=== PATIENT | male | born 1975 | race Caucasian/White ===

== ENCOUNTER 2017-06-13 23:33 | Emergency (ER) | payer OTHER | END 2017-06-14 00:05 | disposition home or self-care (01) | LOC: ER 06-14 00:05 | DX: H66.91 Otitis media, unspecified, right ear (principal); H00.025 Hordeolum internum left lower eyelid; F17.200 Nicotine dependence, unspecified, uncomplicated; Z88.5 Allergy status to narcotic agent | CPT/HCPCS: 99283 ==

== ENCOUNTER 2017-12-26 16:58 | Emergency (ER) | payer OTHER ==
[~2017-12-26] VITALS: Ht 182.9 cm; Wt 95.3 kg
[~2017-12-26 16:58] MED LIST: CEPH-264 PO; DOCU-109 PO; HYDR-971 PO; NAPR-695 PO
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
[2017-12-26] MEDS ORDERED: ONDANSETRON PF 4 MG/2 ML VIAL. IV ONE (19:00)
[2017-12-26] MEDS ORDERED: MORPHINE SULFATE 4 MG/ML VIAL. IV ONE (19:00)
[2017-12-26 19:04] LABS: BASO # 0.1 x10^3/uL (0.0-0.2); BASO % 1 % (0-3); EOS # 0.3 x10^3/uL (0.0-0.7); EOS % 3 % (0-3); HEMATOCRIT 45.1 % (39.0-53.0); HEMOGLOBIN 15.6 g/dL (13.0-17.5); LYMPH # 2.8 x10^3/uL (1.0-4.8); LYMPH % 30 % (24-48); MEAN CORPUSCULAR HEMOGLOBIN 30 pg (25-35); MEAN CORPUSCULAR HGB CONC 35 g/dL (31-37); MEAN CORPUSCULAR VOLUME 86 fL (79-100); MONO # 0.7 x10^3/uL (0.0-1.1); MONO % 8 % (0-9); NEUT # 5.5 x10^3uL (1.8-7.7); NEUT % 58 % (31-73); PLATELET COUNT 292 x10^3/uL (140-400); RED BLOOD COUNT 5.25 x10^6/uL (4.30-5.70); RED CELL DISTRIBUTION WIDTH 13.3 % (11.5-14.5); WHITE BLOOD COUNT 9.5 x10^3/uL (4.0-11.0)
[2017-12-26 19:12] LABS: BILIRUBIN,URINE NEGATIVE (NEG); CLARITY,URINE CLEAR; COLOR,URINE YELLOW; NITRITE,URINE NEGATIVE (NEG); PH,URINE 5.5; PROTEIN,URINE NEGATIVE (NEG-TRACE)
[2017-12-26 19:15] LABS: CALCIUM 9.3 mg/dL (8.5-10.1); CREATININE 0.9 mg/dL (0.7-1.3); GFR 91.7; POTASSIUM 3.7 mmol/L (3.5-5.1)
[2017-12-26 19:24] LABS: BACTERIA,URINE 0 /HPF (0-FEW); RBC,URINE 0 /HPF (0-2); SQUAMOUS EPITHELIAL CELL,UR OCC /LPF; WBC,URINE OCC /HPF (0-4)
[2017-12-26 19:28] LABS: ALBUMIN 3.7 g/dL (3.4-5.0); ALBUMIN/GLOBULIN RATIO 1.1 (1.0-1.7); TOTAL BILIRUBIN 0.2 mg/dL (0.2-1.0); TOTAL PROTEIN 7.1 g/dL (6.4-8.2)
[2017-12-26] MEDS ORDERED: IOHEXOL 300 MG/ML 100ML VIAL. IV ONE (19:30)
[2017-12-26] MEDS ORDERED: CONTRAST GIVEN. MC PRN (19:30)
[2017-12-26 20:01] VITALS: BP 104/50
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
== END 2017-12-26 20:31 | disposition home or self-care (01) ==
LOC: ER 16:58
DX: R10.9 Unspecified abdominal pain (principal); Z90.49 Acquired absence of other specified parts of digestive tract; Z88.5 Allergy status to narcotic agent
CPT/HCPCS: 36415; 74177; 80053; 81001; 83690; 85025; 96374; 96375; 99285; J2270; J2405; Q9967

== ENCOUNTER → 2020-12-02 | Outpatient (CLI) | payer MEDICAID ==
[~2020-12-02] MED LIST changes: +CONTRAST GIVEN. MC PRN; +HYDR-3164 PO; -HYDR-971 PO; +IOHEXOL 240 MG/ML 50ML VIAL. PO ONE
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
== END ==
LOC: CT 09:19
PROVIDERS: ATTEND Family Medicine
DX: K40.90 Unilateral inguinal hernia, without obstruction or gangrene, not specified as recurrent (principal); K82.8 Other specified diseases of gallbladder; Z98.890 Other specified postprocedural states
CPT/HCPCS: 74176; Q9966

== ENCOUNTER → 2021-01-27 | Outpatient (CLI) | payer MEDICAID ==
[~2021-01-27] MED LIST changes: -CONTRAST GIVEN. MC PRN; +HYDR-2761 PO; -IOHEXOL 240 MG/ML 50ML VIAL. PO ONE
== END ==
LOC: LAB 09:51
PROVIDERS: ATTEND Surgery
DX: K40.20 Bilateral inguinal hernia, without obstruction or gangrene, not specified as recurrent (principal); Z01.812 Encounter for preprocedural laboratory examination; Z20.822 Contact with and (suspected) exposure to COVID-19
CPT/HCPCS: U0003; U0005

== ENCOUNTER 2021-01-30 08:43 | Day surgery (SDC) | payer MEDICAID ==
[~2021-01-30] VITALS: Ht 185.4 cm; Wt 105.5 kg
[~2021-01-30 08:43] MED LIST changes: -HYDR-2761 PO; +HYDROmorphone 2 MG/ML VIAL IVP PRN; +MORPHINE SULFATE 2 MG/ML INJ. IVP PRN; +PROCHLORPERAZINE 10 MG/2 ML VIAL. IVP PRN; +fentaNYL PF VIAL 100 MCG/2 ML VIAL IVP PRN
[2021-01-30 09:02] VITALS: BP 165/90
[2021-01-30] MEDS: IV RINGERS,LACTATED 1000ML 1,000 ML IV SCH ×2 (09:05→17:10)
[2021-01-30] MEDS ORDERED: ONDANSETRON PF 4 MG/2 ML VIAL. ONE (10:29)
[2021-01-30] MEDS ORDERED: DEXAMETHASONE SOD PHOS 4 MG/ML VIAL ONE (10:29)
[2021-01-30] MEDS ORDERED: PROPOFOL 10 MG/ML (20ML) VIAL. IV ONE ×2 (10:29→11:57)
[2021-01-30] MEDS ORDERED: BUPIVACAINE-EPI 0.5%-1:200000 MPF 30 ML VIAL. ONE (11:45)
[2021-01-30] MEDS ORDERED: KETOROLAC 30 MG/ML VIAL. ONE ×2 (11:51→15:20)
[2021-01-30] MEDS ORDERED: fentaNYL PF VIAL 100 MCG/2 ML VIAL ONE (11:52)
--- NOTE | 2021-01-30 15:48 | PDOC4 ---
Operative Note Operative Note Operative Note: Preoperative Diagnosis: Bilateral inguinal hernias Postoperative Diagnosis: Same Procedure: Bilateral inguinal hernia repair with mesh Surgeon: Talha Public Area Supervisor: Dr. Quentin BARRAGAN, Deneen GREEN Anesthesia: General EBL: 75 mL Specimen: Left, right inguinal contents to pathology Drains: None Complications: None Indication: The patient is a 45-year-old male who is referred with clinical and radiographic evidence suggesting fatty containing bilateral inguinal hernias. He was offered surgical repair. The risks of surgery were discussed which include bleeding, infection, pain, recurrence, anesthetic risk, urinary retention, scar tissue, wound healing problems, mesh infection, potential need for additional surgery procedure. He understands and would like to proceed. Description: The patient was taken the operating room and placed supine on the operating table. General anesthesia was performed. The bilateral groins were shaved and prepped with ChloraPrep and draped in a standard surgical manner. Beginning on the left side an incision was made in the groin with a scalpel. Cautery was carried down to the external beak aponeurosis. The aponeurosis was opened down to the external ring. The contents of the inguinal canal were digitally mobilized and encircled with a Clint drain. There was a large amount of fatty tissue involvement. There was also a marked degree of chronic inflammation of the inguinal contents. This made identification of the anatomy somewhat difficult initially. Gradually we were able to identify the vas deferens and other cord structures. These were in close approximation to a extremely prominent and large amount of fatty infiltration. This did not have the appearance of a typical lipoma but rather marked amount of fatty tissue throughout the entire inguinal canal. No clear indirect hernia sac was identified and the inguinal floor was fairly intact. We suspect the fatty infiltration was detected as a hernia on exam and CT scan. The excess fatty tissue was excised with the LigaSure and sent to pathology. The defect at the base of this tissue was then filled with a large Phasix mesh plug. The plug was sutured around its periphery with 2-0 Vicryl. The inguinal floor was then reinforced with a Prolene keyhole mesh patch. This was also sutured with interrupted 2-0 Vicryl. The external oblique was then closed over the mesh with 2-0 Vicryl. The subcutaneous tissue was approximated 3-0 Monocryl. The skin was closed with 4-0 Monocryl. We directed our attention to the right groin. In a similar manner an incision was made in the skin with a scalpel. Cautery dissection was carried down to the aponeurosis. The aponeurosis was opened down to the external ring. The contents of the inguinal canal were digitally mobilized and encircled with a [place] drain. There was a similar appearance of marked fatty infiltration along the cord structures in the inguinal canal. These were mobilized from the surrounding tissues. The vas deferens and other cord structures were identified and preserved. The fatty infiltration and infla mmatory changes were less prominent than on the left. With the LigaSure the excess fatty tissue was excised and sent to pathology. That defect was also filled with a large Phasix mesh plug. This was secured with 2-0 Vicryl. The inguinal floor was then reinforced with a keyhole Prolene mesh patch. The patch was sutured in position with 2-0 Vicryl. The external oblique was closed over the mesh with 2-0 Vicryl. The subcutaneous tissue was approximated with 3-0 Vicryl. The skin was closed with 4-0 Monocryl and both skin incisions were infiltrated with half percent Marcaine with epinephrine. Steri-Strips and dressings were applied. The patient tolerated procedure well and was sent to the recovery room in stable condition. At the end the case all counts were correct ALVIN PITT MD Jan 30, 2021 15:48
[2021-01-30] MEDS ORDERED: HYDR-2761 PO (15:50)
[2021-01-30] MEDS ORDERED: SEVOFLURANE > 120 MINUTES. IH ONE (15:51)
--- NOTE | 2021-01-30 15:52 | DISCH ---
DISCHARGE INSTRUCTIONS Condition on Discharge Condition on Discharge: Stable Activity After Discharge Activity Instructions for Disc: Other, see below (no lifting over 20 lbs, s trenuous activity X 4 weeks) Diet after Discharge Diet after Discharge: Regular Wound Incision Care Wound/Incision Care: Other, see below (keep dressings clean and dry X 72 hours, may then remove and shower) Follow-Up Follow up with: Dr Pitt in 2 weeks in office, call for appointment [phone] ALVIN PITT MD Jan 30, 2021 15:52
[2021-01-30] MEDS ORDERED: HYDROcodone/APAP 5/325MG 1 TAB TABLET PO ONE ×2 (16:45→17:00)
[2021-01-30 17:15] VITALS: BP 143/71
--- NOTE | 2021-02-01 16:11 | PATHOLOGY ---
[facility] Accession Number: [id number] . 01 Material submitted: . PART A: inguinal area - LEFT INGUINAL CONTENTS. Modifiers: left PART B: inguinal area - RIGHT INGUINAL CONTENTS. Modifiers: right . 01 Clinical history: . BILATERAL INGUINAL HERNIA REPAIR . 02 Diagnosis: A. Left inguinal contents: - Segment of benign fibroadipose tissue showing congestion and focal recent hemorrhage. . B. Right inguinal contents: - Segment of benign fibroadipose tissue showing congestion and focal recent hemorrhage. . (JPM:maryam; 02/01/2021) MBR 02/01/2021 1250 Local . 02 Electronically signed: . Ray Mendez MD, Pathologist NPI- [id number] . 01 Gross description: . A. Fixative: Formalin Labeled: Left inguinal contents Specimen received: Segment of purple-anderosn to pale yellow fibroadipose tissue Dimensions: 11.5 x 9.4 x 3.9 cm Abnormalities: None identified Submitted representatively in cassette A1. . B. Fixative: Formalin Labeled: Right inguinal contents Specimen received: Segment of purple-andreson to pale yellow fibroadipose tissue Dimensions: 13.1 x 4.1 x 2.4 cm Abnormalities: None identified Submitted representatively in cassette B1. ([facility]; 01/31/2021) NRI/NRI 01/31/2021 1514 Local . 02 Pathologist provided ICD-10: K40.20 . 02 CPT . 892168, [id number] Specimen Comment: A courtesy copy of this report has been sent to [phone], [phone] Specimen Comment: [id number] Specimen Comment: Report sent to / DR PINEDO Performed at: [address], [place] [id number] MD Jake Charles MD Phone: [phone] Performed at: [address] [id number] MD Ray Mendez MD Phone: [phone]
== END 2021-01-30 18:03 | disposition home or self-care (01) ==
LOC: SURG 08:43
PROVIDERS: ATTEND Surgery
DX: K40.20 Bilateral inguinal hernia, without obstruction or gangrene, not specified as recurrent (principal); F17.210 Nicotine dependence, cigarettes, uncomplicated; Z79.899 Other long term (current) drug therapy; Z98.890 Other specified postprocedural states; Z88.8 Allergy status to other drugs, medicaments and biological substances
CPT/HCPCS: 49505; A4364; A4930; A6402; C1781; J0690; J1100; J1885; J2405; J2704; J3010; 88302; A4452

== ENCOUNTER → 2021-04-19 | Outpatient (CLI) | payer MEDICAID ==
[~2021-04-19] MED LIST changes: +HYDR-2761 PO; -HYDROmorphone 2 MG/ML VIAL IVP PRN; +IOHEXOL 240 MG/ML 50ML VIAL. PO ONE; +IOHEXOL 300 MG/ML 100ML VIAL. IV ONE; -MORPHINE SULFATE 2 MG/ML INJ. IVP PRN; -PROCHLORPERAZINE 10 MG/2 ML VIAL. IVP PRN; -fentaNYL PF VIAL 100 MCG/2 ML VIAL IVP PRN
--- NOTE | 2021-04-20 11:48 | KCIC ---
Exam: CT pelvis with intravenous contrast Indication: Scrotal swelling, history of bilateral hernia repair 2 months ago Comparison: 12/02/2020 Technique: Helical CT imaging performed of the pelvis after the intravenous administration of 100 mL Omnipaque 300 contrast. Sagittal and coronal reformats were obtained. One or more of the following individualized dose reduction techniques were utilized for this examinat ion: 1. Automated exposure control 2. Adjustment of the mA and/or kV according to patient size 3. Use of iterative reconstruction technique. Findings: There are surgical changes of bilateral inguinal hernia repair. Soft tissue thickening extending jose g the spermatic cords is likely postsurgical. No recurrent hernia. There are small bilateral hydrocel es. There is a lower abdominal wall surgical scar. No fluid collection. No lymphadenopathy. There is a surgical clip in the pelvis posteriorly on the right, unchanged. Visualized portion of the bowel is unremarkable. Abdominal aorta and iliac arteries are normal in caliber with mild calcified atheroscl erosis. There is right greater than left facet arthrosis at L5-S1. Moderate degenerative joint disea se of the hips. IMPRESSION: New surgical changes of bilateral inguinal hernia repair. No recurrent hernia. There is s oft tissue thickening along the spermatic cords, which may be the postoperative appearance. Small constanza ateral hydroceles. Ultrasound could be obtained if further evaluation is needed. Electronically signed by: Nany Oneill MD (04/20/2021 11:46 AM) [id number]
== END ==
LOC: KCIC CT 14:30
PROVIDERS: ATTEND Nurse Practitioner Family
DX: N50.89 Other specified disorders of the male genital organs (principal); N43.3 Hydrocele, unspecified; M47.817 Spondylosis without myelopathy or radiculopathy, lumbosacral region; M16.0 Bilateral primary osteoarthritis of hip; Z98.890 Other specified postprocedural states
CPT/HCPCS: 72193; Q9966; Q9967

== ENCOUNTER 2021-04-28 18:43 | Emergency (ER) | payer MEDICAID ==
[~2021-04-28] VITALS: Ht 188 cm; Wt 104.5 kg
[~2021-04-28 18:43] MED LIST changes: -IOHEXOL 240 MG/ML 50ML VIAL. PO ONE; -IOHEXOL 300 MG/ML 100ML VIAL. IV ONE
[2021-04-28] MEDS ORDERED: IV NORMAL SALINE 1000ML BAG 1,000 ML IV ONE (19:45)
[2021-04-28 19:56] LABS: BASO # 0.1 x10^3/uL (0.0-0.2); BASO % 1 % (0-3); EOS # 0.3 x10^3/uL (0.0-0.7); EOS % 3 % (0-3); HEMOGLOBIN 13.9 g/dL (13.0-17.5); LYMPH # 1.8 x10^3/uL (1.0-4.8); LYMPH % 20 % (24-48); MEAN CORPUSCULAR HEMOGLOBIN 29 pg (25-35); MEAN CORPUSCULAR HGB CONC 34 g/dL (31-37); MEAN CORPUSCULAR VOLUME 84 fL (79-100); MONO # 0.8 x10^3/uL (0.0-1.1); MONO % 9 % (0-9); NEUT # 6.2 x10^3/uL (1.8-7.7); NEUT % 67 % (31-73); PLATELET COUNT 265 x10^3/uL (140-400); RED BLOOD COUNT 4.86 x10^6/uL (4.30-5.70); RED CELL DISTRIBUTION WIDTH 13.2 % (11.5-14.5); WHITE BLOOD COUNT 9.2 x10^3/uL (4.0-11.0)
[2021-04-28 20:07] LABS: CALCIUM 7.8 mg/dL (8.5-10.1); CREATININE 0.9 mg/dL (0.7-1.3); GFR 90.4; POTASSIUM 3.9 mmol/L (3.5-5.1)
[2021-04-28 20:14] LABS: ALBUMIN 3.3 g/dL (3.4-5.0); ALBUMIN/GLOBULIN RATIO 0.9 (1.0-1.7); MAGNESIUM 2.1 mg/dL (1.8-2.4); TOTAL BILIRUBIN 0.2 mg/dL (0.2-1.0); TOTAL PROTEIN 6.8 g/dL (6.4-8.2)
[2021-04-28] MEDS ORDERED: fentaNYL PF VIAL 100 MCG/2 ML VIAL IV ONE (20:15)
[2021-04-28] MEDS ORDERED: IOHEXOL 300 MG/ML 100ML VIAL. IV ONE (21:00)
[2021-04-28] MEDS ORDERED: CONTRAST GIVEN. MC PRN (21:00)
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
--- NOTE | 2021-04-28 21:48 | RAD ---
CLINICAL HISTORY: Reason: right testicular pain and swelling / Spl. Instructions: / History: COMPARISON: None available. TECHNIQUE: Ultrasound images of the scrotum was performed with westfall-scale and color doppler. FINDINGS: The right testis measures 4.2 x 3.3 x 3.2 cm. The left testis measures 3.2 x 2.9 x 2.4 cm. There is no intratesticular abnormality. Testicular vascularity is symmetric and within normal limits . Prominence of the left epididymal tail. Moderate bilateral hydroceles. IMPRESSION: 1. No evidence for testicular torsion. 2. Moderate bilateral hydroceles. Electronically signed by: Alex Caldera MD (04/28/2021 9:46 PM) [facility]
[2021-04-28 22:03] LABS: BILIRUBIN,URINE NEGATIVE (NEG); COLOR,URINE YELLOW; NITRITE,URINE NEGATIVE (NEG); PH,URINE 6.5 (<5.0-8.0); PROTEIN,URINE NEGATIVE (NEG-TRACE)
[2021-04-28 22:06] LABS: BACTERIA,URINE 0 /HPF (0-FEW); CLARITY,URINE CLEAR; RBC,URINE 0 /HPF (0-2); WBC,URINE OCC /HPF (0-4)
[2021-04-28 22:45] VITALS: BP 127/79
[2021-04-28] MEDS ORDERED: HYDR-2761 PO (22:48)
== END 2021-04-28 23:00 | disposition home or self-care (01) ==
LOC: ER 18:43
DX: R10.31 Right lower quadrant pain (principal); N43.3 Hydrocele, unspecified; Z88.5 Allergy status to narcotic agent
CPT/HCPCS: 36415; 74177; 76870; 80053; 81001; 83605; 83690; 83735; 85025; 87491; 87591; 96361; 96374; 99285; J3010; J7030; Q9967